=== PATIENT | female | born 1970 | race Caucasian/White ===

== ENCOUNTER 2016-07-31 19:40 | Emergency (ER) | payer BC ==
--- NOTE | 2016-07-31 20:04 | EDM.PDOC ---
ED HPI GENERAL MEDICAL PROBLEM - General Chief Complaint: Abdominal Pain Stated Complaint: PT HAS STOMACH PAINS Time Seen by Provider: 07/31/16 20:00 Source of Information: Reports: Patient History Limitations: Reports: No Limitations - History of Present Illness INITIAL COMMENTS - FREE TEXT/NARRATIVE: History of present illness: [45-year-old female presenting with abdominal pain. Indicates that it is going to her back and radiating outward. Patient has had a history of abdominal pains and numerous workups.] Review of systems: As per history of present illness and below otherwise all systems reviewed and negative. Past medical history: As per history of present illness and as reviewed below otherwise noncontributory. Surgical history: As per history of present illness and as reviewed below otherwise noncontributory. Social history: No reported history of drug or alcohol abuse. Family history: As per history of present illness and as reviewed below otherwise noncontributory. Physical exam: HEENT: Atraumatic, normocephalic, pupils reactive, negative for conjunctival pallor or scleral icterus, mucous membranes moist, throat clear, neck supple, nontender, trachea midline. Lungs: Clear to auscultation, breath sounds equal bilaterally, chest nontender. Heart: S1S2, regular, negative for clicks, rubs, or JVD. Abdomen: Soft, exquisite diffuse nonspecific tenderness Negative for masses or hepatosplenomegaly. Negative for costovertebral tenderness. Pelvis: Stable nontender. Genitourinary: Deferred. Rectal: Deferred. Extremities: Atraumatic, negative for cords or calf pain. Neurovascular unremarkable. Neuro: Awake, alert, oriented. Cranial nerves II through XII unremarkable. Cerebellum unremarkable. Motor and sensory unremarkable throughout. Exam nonfocal. Diagnostics: [CBC, CMP, amylase, lipase, troponin, UA, urine hCG] Therapeutics: [IV fluid, Toradol, Zofran, morphine] Impression: [Constipation] Plan: [Dulcolax suppository to take home and increase fiber] Definitive disposition and diagnosis as appropriate pending reevaluation and review of above. abdomen Pain Score (Numeric/FACES): 10 - Related Data Allergies Allergy/AdvReac Type Severity Reaction Status Date / Time acetaminophen [From Tylenol] Allergy Facial Verified 07/31/16 19:53 Spasms guaifenesin [From Mucinex] Allergy Swelling Verified 07/31/16 19:53 iodine Allergy Anaphylactic Verified 07/31/16 19:53 Shock Latex, Natural Rubber Allergy Anaphylactic Verified 07/31/16 19:53 Shock nickel [Nickel] Allergy Swelling Verified 07/31/16 19:53 Home Meds: Home Meds . 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: Reports: Other (See Below) Other OB/BYN History: 3 c-sections Neurological History: Reports: None Psychiatric History: Reports: None Hematologic History: Reports: None Oncologic (Cancer) History: Reports: Other (See Below) Other Oncologic History: (L) inguinal tumor removed - Past Surgical History GI Surgical History: Reports: Bariatric Procedure, Cholecystectomy Social & Family History - Family History Family Medical History: Noncontributory Other Cardiac Family History: cardiac disease in multiple siblings - Tobacco Use Smoking Status *Q: Current Some Day Smoker Years of Tobacco use: 20 Packs/Tins Daily: 0.1 Used Tobacco, but Quit: Yes Month Tobacco Last Used: August Second Hand Smoke Exposure: No - Alcohol Use Days Per Week of Alcohol Use: 0 - Recreational Drug Use Recreational Drug Use: No ED ROS GENERAL - Review of Systems Review Of Systems: See Below (See history of present illness) ED EXAM, GI/ABD - Physical Exam Exam: See Below (See history of present illness) Course - Vital Signs Last Recorded V/S: Last Vital Signs Temp 36.0 C 07/31/16 19:54 Pulse 64 07/31/16 19:54 Resp 18 07/31/16 19:54 BP 131/63 07/31/16 19:54 Pulse Ox 98 07/31/16 19:54 - Orders/Labs/Meds Orders: Active Orders 24 hr Category Date Time Status Abdomen Pelvis wo Cont [CT] Stat Exams 07/31/16 21:28 Taken Labs: Laboratory Tests 07/31/16 07/31/16 07/31/16 Range/Units 20:25 20:25 20:25 WBC 6.83 (4.0-11.0) K/uL RBC 4.66 (4.30-5.90) M/uL Hgb 14.3 (12.0-16.0) g/dL Hct 42.4 (36.0-46.0) % MCV 91.0 (80.0-98.0) fL MCH 30.7 (27.0-32.0) pg MCHC 33.7 (31.0-37.0) g/dL RDW Std Deviation 45.7 (28.0-62.0) fl RDW Coeff of Eloisa 14 (11.0-15.0) % Plt Count 212 (150-400) K/uL MPV 9.50 (7.40-12.00) fL Neut % (Auto) 39.7 L (48.0-80.0) % Lymph % (Auto) 50.4 H (16.0-40.0) % Nolan % (Auto) 6.7 (0.0-15.0) % Eos % (Auto) 2.5 (0.0-7.0) % Baso % (Auto) 0.7 (0.0-1.5) % Neut # (Auto) 2.7 (1.4-5.7) K/uL Lymph # (Auto) 3.4 H (0.6-2.4) K/uL Nolan # (Auto) 0.5 (0.0-0.8) K/uL Eos # (Auto) 0.2 (0.0-0.7) K/uL Baso # (Auto) 0.1 (0.0-0.1) K/uL Nucleated RBC % 0.0 /100WBC Nucleated RBCs # 0 K/uL Sodium 144 (136-146) mmol/L Potassium 4.1 (3.5-5.1) mmol/L Chloride 113 H (98-110) mmol/L Carbon Dioxide 20 L (21-31) mmol/L BUN 16 (6.0-23.0) mg/dL Creatinine 0.8 (0.6-1.5) mg/dL Est Cr Clr Drug Dosing 75.88 mL/min Estimated GFR (MDRD) > 60.0 ml/min Glucose 85 (60-110) mg/dL Calcium 8.4 L (8.8-10.8) mg/dL Total Bilirubin 0.4 (0.1-1.5) mg/dL AST 17 (5-40) IU/L ALT 20 (8-54) IU/L Alkaline Phosphatase 77 (40-150) Troponin I < 0.10 (0.0-0.29) NG/ML Total Protein 6.3 (6.0-8.0) g/dL Albumin 4.0 (3.5-5.0) g/dL Globulin 2.3 (2.0-3.5) g/dL Albumin/Globulin Ratio 1.7 (1.3-2.8) Amylase 53 (10-90) U/L Lipase 18 (7-80) U/L Urine Color Urine Appearance Urine pH (5.0-8.0) Ur Specific Bland (1.001-1.035) Urine Protein (NEGATIVE) mg/dL Urine Glucose (UA) (NEGATIVE) mg/dL Urine Ketones (NEGATIVE) mg/dL Urine Occult Blood (NEGATIVE) Urine Nitrite (NEGATIVE) Urine Bilirubin (NEGATIVE) Urine Urobilinogen (<2.0) EU/dL Ur Leukocyte Esterase (NEGATIVE) Urine RBC (0-2/HPF) Urine WBC (0-5/HPF) Ur Epithelial Cells (NONE-FEW) Urine Bacteria (NEGATIVE) Urine HCG, Qual (NEGATIVE) 07/31/16 07/31/16 Range/Units 21:35 21:35 WBC (4.0-11.0) K/uL RBC (4.30-5.90) M/uL Hgb (12.0-16.0) g/dL Hct (36.0-46.0) % MCV (80.0-98.0) fL MCH (27.0-32.0) pg MCHC (31.0-37.0) g/dL RDW Std Deviation (28.0-62.0) fl RDW Coeff of Eloisa (11.0-15.0) % Plt Count (150-400) K/uL MPV (7.40-12.00) fL Neut % (Auto) (48.0-80.0) % Lymph % (Auto) (16.0-40.0) % Nolan % (Auto) (0.0-15.0) % Eos % (Auto) (0.0-7.0) % Baso % (Auto) (0.0-1.5) % Neut # (Auto) (1.4-5.7) K/uL Lymph # (Auto) (0.6-2.4) K/uL Nolan # (Auto) (0.0-0.8) K/uL Eos # (Auto) (0.0-0.7) K/uL Baso # (Auto) (0.0-0.1) K/uL Nucleated RBC % /100WBC Nucleated RBCs # K/uL Sodium (136-146) mmol/L Potassium (3.5-5.1) mmol/L Chloride (98-110) mmol/L Carbon Dioxide (21-31) mmol/L BUN (6.0-23.0) mg/dL Creatinine (0.6-1.5) mg/dL Est Cr Clr Drug Dosing mL/min Estimated GFR (MDRD) ml/min Glucose (60-110) mg/dL Calcium (8.8-10.8) mg/dL Total Bilirubin (0.1-1.5) mg/dL AST (5-40) IU/L ALT (8-54) IU/L Alkaline Phosphatase (40-150) Troponin I (0.0-0.29) NG/ML Total Protein (6.0-8.0) g/dL Albumin (3.5-5.0) g/dL Globulin (2.0-3.5) g/dL Albumin/Globulin Ratio (1.3-2.8) Amylase (10-90) U/L Lipase (7-80) U/L Urine Color YELLOW Urine Appearance CLEAR Urine pH 5.5 (5.0-8.0) Ur Specific Bland 1.020 (1.001-1.035) Urine Protein NEGATIVE (NEGATIVE) mg/dL Urine Glucose (UA) NEGATIVE (NEGATIVE) mg/dL Urine Ketones 15 H (NEGATIVE) mg/dL Urine Occult Blood NEGATIVE (NEGATIVE) Urine Nitrite NEGATIVE (NEGATIVE) Urine Bilirubin NEGATIVE (NEGATIVE) Urine Urobilinogen 0.2 (<2.0) EU/dL Ur Leukocyte Esterase NEGATIVE (NEGATIVE) Urine RBC 0-1 (0-2/HPF) Urine WBC 0-2 (0-5/HPF) Ur Epithelial Cells FEW (NONE-FEW) Urine Bacteria FEW (NEGATIVE) Urine HCG, Qual NEGATIVE (NEGATIVE) Meds: Medications Discontinued Medications Generic Name Dose Route Start Last Admin Trade Name Freq PRN Reason Stop Dose Admin Al Hydroxide/Mg Hydroxide 15 0 ml 07/31/16 20:25 07/31/16 20:47 ml/ Metoclopramide HCl 5 mg/ PO 07/31/16 20:26 25 each Lidocaine HCl 5 ml ONETIME ONE Administration Hydromorphone HCl 1 mg 07/31/16 21:21 07/31/16 21:41 Dilaudid IVPUSH 07/31/16 21:22 1 mg ONETIME ONE Administration Hydromorphone HCl 2 mg 07/31/16 22:02 07/31/16 22:49 Dilaudid IVPUSH 07/31/16 22:03 2 mg ONETIME ONE Administration Sodium Chloride 1,000 mls @ 999 mls/hr 07/31/16 20:24 07/31/16 20:36 Normal Saline IV 07/31/16 21:24 999 mls/hr STAT ONE Administration Sodium Chloride 1,000 mls @ 999 mls/hr 07/31/16 21:22 07/31/16 21:52 Normal Saline IV 07/31/16 22:22 999 mls/hr STAT ONE Administration Pantoprazole Sodium 80 mg/ 10 mls @ 300 mls/hr 07/31/16 21:22 07/31/16 21:44 Sodium Chloride IVPUSH 07/31/16 21:23 300 mls/hr NOW ONE Administration Ketorolac Tromethamine 30 mg 07/31/16 20:24 07/31/16 20:44 Toradol IVPUSH 07/31/16 20:25 30 mg ONETIME ONE Administration Morphine Sulfate 2 mg 07/31/16 20:24 07/31/16 20:37 Morphine IVPUSH 07/31/16 20:25 2 mg ONETIME ONE Administration Ondansetron HCl 4 mg 07/31/16 20:24 07/31/16 20:40 Zofran IVPUSH 07/31/16 20:25 4 mg ONETIME ONE Administration Ondansetron HCl 4 mg 07/31/16 21:21 07/31/16 21:39 Zofran IVPUSH 07/31/16 21:22 4 mg ONETIME ONE Administration Departure - Departure Time of Disposition: 23:48 Disposition: Home, Self-Care 01 Condition: Good Clinical Impression: Constipation - Discharge Information Instructions: Abdominal Pain, Adult, [id number] Forms: ED Department Discharge Additional Instructions: The following information is given to patients seen in the emergency department who are being discharged to home. This information is to outline your options for follow-up care. We provide all patients seen in our emergency department with a follow-up referral. The need for follow-up, as well as the timing and circumstances, are variable depending upon the specifics of your emergency department visit. If you don't have a primary care physician on staff, we will provide you with a referral. We always advise you to contact your personal physician following an emergency department visit to inform them of the circumstance of the visit and for follow-up with them and/or the need for any referrals to a consulting specialist. The emergency department will also refer you to a specialist when appropriate. This referral assures that you have the opportunity for follow-up care with a specialist. All of these measure are taken in an effort to provide you with optimal care, which includes your follow-up. Under all circumstances we always encourage you to contact your private physician who remains a resource for coordinating your care. When calling for follow-up care, please make the office aware that this follow-up is from your recent emergency room visit. If for any reason you are refused follow-up, please contact the [facility] Emergency Department at and asked to speak to the emergency department charge nurse. As discussed you have a significant amount of fecal content in your colon It is important to increase her fiber and your hydration secondary to gastric bypass which predisposes you to this problem Follow up with her primary care provider 1-2 days Return to ED as needed as discussed - My Orders Last 24 Hours: My Active Orders 07/31/16 21:28 Abdomen Pelvis wo Cont [CT] Stat - Assessment/Plan Last 24 Hours: My Active Orders 07/31/16 21:28 Abdomen Pelvis wo Cont [CT] Stat
[2016-07-31] MEDS ORDERED: Morphine 2 MG/ML Syringe IVPUSH ONE (20:24)
[2016-07-31] MEDS ORDERED: Ondansetron 4 MG/2 ML SDV IVPUSH ONE ×2 (20:24→21:21)
[2016-07-31] MEDS ORDERED: Ketorolac 30 MG/ML SDV IVPUSH ONE (20:24)
[2016-07-31] MEDS ORDERED: Sodium Chloride 0.9% 1,000 ML IV ONE ×2 (20:24→21:22)
[2016-07-31] MEDS ORDERED: Alum Hydrox/Mag Hydrox/Simeth 15 ML, Metoclopramide 5 MG, Lidocaine 2% 5 ML PO ONE ×3 (20:25)
[2016-07-31 21:07] LABS: CHLORIDE,CL 113 mmol/L (98-110); SODIUM,NA 144 mmol/L (136-146)
[2016-07-31] MEDS ORDERED: HYDROmorphone 2 MG/ML Syringe IVPUSH ONE ×2 (21:21→22:02)
[2016-07-31] MEDS ORDERED: Pantoprazole 80 MG in Sodium Chloride 0.9% 10 ML IVPUSH ONE (21:22)
[2016-07-31] MEDS ORDERED: Bisacodyl 10 MG Supp RECTAL ONE (23:49)
[2016-08-01 00:04] VITALS: BP 121/60
--- NOTE | 2016-08-01 10:10 | CT ---
EXAM DATE: 07/31/16 PATIENT'S AGE: 45 Patient: RAJWINDER BAILEY Facility: [place], [place] Site . Site : 1970 Study: CT Abdomen/Pelvis [id number]/[id number] 10:22:45 PM Ordering Physician: Doctor Maier Final Report: INDICATION: Pain. TECHNIQUE: CT abdomen and pelvis acquired with IV contrast. COMPARISON: CT abdomen pelvis 09/06/2015. FINDINGS: Lower chest: Lung bases are clear. Liver: Unremarkable. Spleen: Unremarkable. Pancreas: Unremarkable. Gallbladder and bile ducts: Cholecystectomy. Kidneys: No evidence of urolithiasis or hydroureteronephrosis. Adrenal glands: Unremarkable. GI tract: Changes of gastric bypass again noted. There is gaseous distention of the ascending and transverse colon. Mild fecal loading of the proximal colon as well. Fecal loading of the sigmoid colon and rectum. No evidence of mechanical obstruction. The appendix is normal in appearance. No free air or free fluid. Vascular structures: Unremarkable. Lymph nodes: Unremarkable. Pelvic Organs: Unremarkable. Bones: No acute abnormality. IMPRESSION: Gaseous distention of the proximal colon. Fecal loading of the sigmoid colon and rectum. No evidence of mechanical obstruction. Dictated by Delfino Mckinney MD @ 07/31/2016 10:56:13 PM Dictated by: Delfino Mckinney MD @ 07/31/2016 22:56:36 ----- ADDENDUM ----- IMPRESSION: Technique should read: CT abdomen and pelvis without contrast. . Remainder of the report is unchanged. Dictated by Delfino Mckinney MD @ Jul 31 2016 11:24PM (Electronic Signature) Report Signed by Proxy. [facility] MED[facility] CENTERDavid
== END 2016-07-31 23:59 | disposition home or self-care (01) ==
LOC: MW.ED 19:40
DX: K59.00 Constipation, unspecified (principal); J45.909 Unspecified asthma, uncomplicated; F17.210 Nicotine dependence, cigarettes, uncomplicated; Z87.01 Personal history of pneumonia (recurrent); Z98.84 Bariatric surgery status; Z90.49 Acquired absence of other specified parts of digestive tract; Z98.890 Other specified postprocedural states; Z88.6 Allergy status to analgesic agent; Z88.8 Allergy status to other drugs, medicaments and biological substances; Z91.040 Latex allergy status
CPT/HCPCS: 36415; 74176; 80053; 81001; 81025; 82150; 83690; 84484; 85025; 96361; 96374; 96375; 96376; 99284; A9270; C9113; J1170; J1885; J2270; J2405; J7040

== ENCOUNTER 2017-04-24 19:59 | Emergency (ER) | payer BC ==
--- NOTE | 2017-04-24 20:12 | EDM.PDOC ---
ED HPI GENERAL MEDICAL PROBLEM - General Stated Complaint: LOW BLOOD SUGAR Time Seen by Provider: 04/24/17 20:00 Source of Information: Reports: Patient, Family History Limitations: Reports: No Limitations - History of Present Illness INITIAL COMMENTS - FREE TEXT/NARRATIVE: HISTORY AND PHYSICAL: History of present illness: Patient is a 46-year-old female who presents to the emergency room today with complaints of low blood sugars. She states that for "as long as I can remember" she has had hypoglycemia. States over the past several years is becoming more and more frequent. She has mentioned this several times to Dr. Colon, her primary caregiver, and has had no formal "workup". Kyleigh Johnson has recently referred her to an shingle catcher, appointment date/time is in progress. Patient is here today with her who states that they use over the counter glucagon tablets when her blood sugar gets low. She is having these episodes 1-2 per week where her blood sugar will get in the 30's. The patient states she is concerned as her symptoms do not present until she is in the 30's to 40's. As a glucose monitor at home which she uses during these times. State she becomes "goofy" and diaphoretic when her sugars are low. "I usually bounce back pretty quickly" after taking the OTC glucagon. Patient has a history of a gastric bypass and reports that she eats 3 meals with 3X throughout the day, "I'm getting plenty of sugars through my food". Patient and appear frustrated as they state they are unsure "when low blood sugar is too low". Review of systems: As per history of present illness and below otherwise all systems reviewed and negative. Past medical history: As per history of present illness and as reviewed below otherwise noncontributory. Surgical history: As per history of present illness and as reviewed below otherwise noncontributory. Social history: No reported history of drug or alcohol abuse. Family history: As per history of present illness and as reviewed below otherwise noncontributory. Physical exam: General: Well-developed and well-nourished 46-year-old female. Alert and oriented. Nontoxic appearing and in no acute distress. HEENT: Atraumatic, normocephalic, pupils reactive, negative for conjunctival pallor or scleral icterus, mucous membranes moist, throat clear, neck supple, nontender, trachea midline. Lungs: Clear to auscultation, breath sounds equal bilaterally, chest nontender. Heart: S1S2, regular, negative for clicks, rubs, or JVD. Abdomen: Soft, nondistended, nontender. Negative for masses or hepatosplenomegaly. Negative for costovertebral tenderness. Pelvis: Stable nontender. Genitourinary: Deferred. Rectal: Deferred. Extremities: Atraumatic, negative for cords or calf pain. Neurovascular unremarkable. Neuro: Awake, alert, oriented. Cranial nerves II through XII unremarkable. Cerebellum unremarkable. Motor and sensory unremarkable throughout. Exam nonfocal. Current blood sugar is 75. [place] juice and PB crackers were given to patient. Will continue to monitor glucose with accu-check. Discussed with the patient the limited abilities throughout emergency room for the workup and the shingle catcher will be doing. Will do a CBC, CMP and urinalysis at this time. Lab work is within normal limits. These results with the patient. Encouraged her to keep her appointment with primary care and make sure she gets that appointment with the shingle catcher. Discussed hard of care measures to have available in case her blood sugar drops again. She voices understanding and is agreeable to plan of care. She denies any questions at this time. Diagnostics: CBC, CMP, [employer]: [place] juice, Accu-checks Impression: Hypoglycemia Plan: 1. Please make sure you are eating frequent small meals throughout the day. Have your glucose tabs and/or sugary candies available in the case of a hypoglycemic event. Within 30 minutes, you should have some food (peanut butter/ crackers, banana, etc..) that has slower digesting sugars. 2. Make sure to follow up with your primary care provider, and that you follow up with the [employer]. Return to the ED as needed as discussed. Definitive disposition and diagnosis as appropriate pending reevaluation and review of above. Duration: Chronic - Related Data Allergies Allergy/AdvReac Type Severity Reaction Status Date / Time acetaminophen [From Tylenol] Allergy Facial Verified 04/24/17 20:16 Spasms guaifenesin [From Mucinex] Allergy Swelling Verified 04/24/17 20:16 iodine Allergy Anaphylactic Verified 04/24/17 20:16 Shock Latex, Natural Rubber Allergy Anaphylactic Verified 04/24/17 20:16 Shock nickel [Nickel] Allergy Swelling Verified 04/24/17 20:16 Home Meds: Home Meds . [No Known Home Meds] 07/31/16 [History] Past Medical History - Past Health History Medical/Surgical History: Denies Medical/Surgical History HEENT History: Reports: None Cardiovascular History: Reports: None Respiratory History: Reports: Asthma, Bronchitis, Recurrent, Pneumonia, Recurrent Gastrointestinal History: Reports: Other (See Below) Other Gastrointestinal History: gastric bypass Genitourinary History: Reports: None IMPROVEMENT SPEC History: Reports: Other (See Below) Other OB/BYN History: 3 c-sections Musculoskeletal History: Reports: None Neurological History: Reports: None Psychiatric History: Reports: None Endocrine/Metabolic History: Reports: None Hematologic History: Reports: None Immunologic History: Reports: None Oncologic (Cancer) History: Reports: Other (See Below) Other Oncologic History: (L) inguinal tumor removed Dermatologic History: Reports: None - Infectious Disease History Infectious Disease History: Reports: Mumps - Past Surgical History GI Surgical History: Reports: Bariatric Procedure, Cholecystectomy Social & Family History - Family History Family Medical History: Noncontributory Other Cardiac Family History: cardiac disease in multiple siblings - Tobacco Use Smoking Status *Q: Current Some Day Smoker Years of Tobacco use: 20 Packs/Tins Daily: 0.1 Used Tobacco, but Quit: Yes Month Tobacco Last Used: August Second Hand Smoke Exposure: No - Caffeine Use Caffeine Use: Reports: Coffee - Alcohol Use Days Per Week of Alcohol Use: 0 - Recreational Drug Use Recreational Drug Use: No ED ROS GENERAL - Review of Systems Review Of Systems: ROS reveals no pertinent complaints other than HPI. ED EXAM, GENERAL - Physical Exam Exam: See Below (See dictation) Course - Vital Signs Last Recorded V/S: Last Vital Signs Temp 98.7 F 04/24/17 20:13 Pulse 71 04/24/17 20:13 Resp 12 04/24/17 20:13 BP 128/57 L 04/24/17 20:13 Pulse Ox 99 04/24/17 20:13 - Orders/Labs/Meds Orders: Active Orders 24 hr Category Date Time Status Accu Check [Blood Glucose Check, Bedside] [RC] ONETIME Care 04/24/17 21:17 Active Blood Glucose Check, Bedside [RC] ONETIME Care 04/24/17 20:39 Active Communication Order [RC] STAT Care 04/24/17 20:39 Active CULTURE URINE [RM] Stat Lab 04/24/17 21:29 Ordered Labs: Laboratory Tests 04/24/17 04/24/17 04/24/17 Range/Units 20:30 20:51 20:51 WBC 9.06 (4.0-11.0) K/uL RBC 4.49 (4.30-5.90) M/uL Hgb 13.9 (12.0-16.0) g/dL Hct 41.0 (36.0-46.0) % MCV 91.3 (80.0-98.0) fL MCH 31.0 (27.0-32.0) pg MCHC 33.9 (31.0-37.0) g/dL RDW Std Deviation 46.2 (28.0-62.0) fl RDW Coeff of [place] 14 (11.0-15.0) % Plt Count 188 (150-400) K/uL MPV 9.30 (7.40-12.00) fL Neut % (Auto) 45.8 L (48.0-80.0) % Lymph % (Auto) 41.7 H (16.0-40.0) % [place] % (Auto) 8.7 (0.0-15.0) % Eos % (Auto) 3.2 (0.0-7.0) % Baso % (Auto) 0.6 (0.0-1.5) % Neut # (Auto) 4.2 (1.4-5.7) K/uL Lymph # (Auto) 3.8 H (0.6-2.4) K/uL [place] # (Auto) 0.8 (0.0-0.8) K/uL Eos # (Auto) 0.3 (0.0-0.7) K/uL Baso # (Auto) 0.1 (0.0-0.1) K/uL Nucleated RBC % 0.0 /100WBC Nucleated RBCs # 0 K/uL Sodium 144 (136-145) mmol/L Potassium 4.4 (3.5-5.1) mmol/L Chloride 110 H (98-107) mmol/L Carbon Dioxide 27.5 (21.0-32.0) mmol/L BUN 22 H (7.0-18.0) mg/dL Creatinine 1.0 (0.6-1.0) mg/dL Est Cr Clr Drug Dosing 60.06 mL/min Estimated GFR (MDRD) 59.4 ml/min Glucose 81 (74-106) mg/dL Calcium 8.3 L (8.5-10.1) mg/dL Total Bilirubin 0.2 (0.2-1.0) mg/dL AST 16 (15-37) IU/L ALT 24 (14-63) IU/L Alkaline Phosphatase 95 (46-116) U/L Total Protein 6.1 L (6.4-8.2) g/dL Albumin 3.4 (3.4-5.0) g/dL Globulin 2.7 (2.0-3.5) g/dL Albumin/Globulin Ratio 1.3 (1.3-2.8) Urine Color YELLOW Urine Appearance CLEAR Urine pH 5.5 (5.0-8.0) Ur Specific [place] >= 1.030 (1.001-1.035) Urine Protein NEGATIVE (NEGATIVE) mg/dL Urine Glucose (UA) NEGATIVE (NEGATIVE) mg/dL Urine Ketones TRACE H (NEGATIVE) mg/dL Urine Occult Blood NEGATIVE (NEGATIVE) Urine Nitrite NEGATIVE (NEGATIVE) Urine Bilirubin NEGATIVE (NEGATIVE) Urine Urobilinogen 0.2 (<2.0) EU/dL Ur Leukocyte Esterase TRACE (NEGATIVE) Urine RBC 0-1 (0-2/HPF) Urine WBC 0-3 (0-5/HPF) Ur Epithelial Cells FEW (NONE-FEW) Urine Bacteria FEW (NEGATIVE) Departure - Departure Time of Disposition: 21:25 Disposition: Home, Self-Care 01 Clinical Impression: Hypoglycemia - Discharge Information Instructions: Hypoglycemia, [id number] Referrals: Zbigniew Colon MD [Primary Care Provider] - Forms: ED Department Discharge Additional Instructions: The following information is given to patients seen in the emergency department who are being discharged to home. This information is to outline your options for follow-up care. We provide all patients seen in our emergency department with a follow-up referral. The need for follow-up, as well as the timing and circumstances, are variable depending upon the specifics of your emergency department visit. If you don't have a primary care physician on staff, we will provide you with a referral. We always advise you to contact your personal physician following an emergency department visit to inform them of the circumstance of the visit and for follow-up with them and/or the need for any referrals to a consulting specialist. The emergency department will also refer you to a specialist when appropriate. This referral assures that you have the opportunity for follow-up care with a specialist. All of these measure are taken in an effort to provide you with optimal care, which includes your follow-up. Under all circumstances we always encourage you to contact your private physician who remains a resource for coordinating your care. When calling for follow-up care, please make the office aware that this follow-up is from your recent emergency room visit. If for any reason you are refused follow-up, please contact the [facility] Emergency Department at and asked to speak to the emergency department charge nurse. [address] [address] 1. Please continue to eating frequent small meals throughout the day to prevent your blood sugars from dropping. Have your glucose tabs and/or sugary candies available in the case of a hypoglycemic event. Within 30 minutes, you should have some food (peanut butter/crackers, banana, etc..) that has slower digesting sugars. 2. Make sure to follow up with your primary care provider, and that you follow up with the [employer]. Return to the ED as needed as discussed. - My Orders Last 24 Hours: My Active Orders 04/24/17 20:39 Blood Glucose Check, Bedside [RC] ONETIME Communication Order [RC] STAT 04/24/17 21:17 Accu Check [Blood Glucose Check, Bedside] [RC] ONETIME 04/24/17 21:29 CULTURE URINE [RM] Stat - Assessment/Plan Last 24 Hours: My Active Orders 04/24/17 20:39 Blood Glucose Check, Bedside [RC] ONETIME Communication Order [RC] STAT 04/24/17 21:17 Accu Check [Blood Glucose Check, Bedside] [RC] ONETIME 04/24/17 21:29 CULTURE URINE [RM] Stat
[2017-04-24 21:47] VITALS: BP 126/50
== END 2017-04-24 21:40 | disposition home or self-care (01) ==
LOC: MW.ED 19:59
DX: E16.2 Hypoglycemia, unspecified (principal); F17.210 Nicotine dependence, cigarettes, uncomplicated; Z91.040 Latex allergy status; Z88.8 Allergy status to other drugs, medicaments and biological substances; Z88.6 Allergy status to analgesic agent
CPT/HCPCS: 36415; 80053; 81001; 82962; 85025; 87086; 99283; 99284

== ENCOUNTER 2018-02-27 07:52 | Emergency (ER) | payer BC ==
[2018-02-27] MEDS ORDERED: predniSONE 20 MG Tab PO ONE (08:04)
[2018-02-27] MEDS ORDERED: diphenhydrAMINE 25 MG Cap PO ONE (08:04)
--- NOTE | 2018-02-27 08:21 | EDM.PDOC ---
ED HPI GENERAL MEDICAL PROBLEM - General Chief Complaint: Allergic Reaction Stated Complaint: ALLERGIC REACTION Time Seen by Provider: 02/27/18 08:01 Source of Information: Reports: Patient History Limitations: Reports: No Limitations - History of Present Illness INITIAL COMMENTS - FREE TEXT/NARRATIVE: History of present illness: []Patient started a new B12 supplement last night developed a rash with burning and itching in her face and arms approximately 30 minutes to arrival. As any difficulty breathing, swallowing or shortness of breath. Review of systems: As per history of present illness and below otherwise all systems reviewed and negative. Past medical history: As per history of present illness and as reviewed below otherwise noncontributory. Surgical history: As per history of present illness and as reviewed below otherwise noncontributory. Social history: No reported history of drug or alcohol abuse. Family history: As per history of present illness and as reviewed below otherwise noncontributory. Physical exam: General: Well developed, well nourished in NAD HEENT: Atraumatic, normocephalic, pupils reactive, negative for conjunctival pallor or scleral icterus, mucous membranes moist, throat clear, no edema in the posterior pharynx neck supple, nontender, trachea midline. No stridor Lungs: Clear to auscultation, breath sounds equal bilaterally, chest nontender. Heart: S1S2, regular, negative for clicks, rubs, or JVD. Abdomen: NABS, Soft, nondistended, nontender. Negative for masses or hepatosplenomegaly. Negative for costovertebral tenderness. Pelvis: Stable nontender. Genitourinary: Deferred. Rectal: Deferred. Extremities: Atraumatic, negative for cords or calf pain. Neurovascular unremarkable. Neuro: Awake, alert, oriented. Cranial nerves II through XII unremarkable. Cerebellum unremarkable. Motor and sensory unremarkable throughout. Exam nonfocal. Skin:warm and dry, generalized erythematous skin on face and arms no lesions. Diagnostics: None Therapeutics: Benadryl and prednisone ED Course: Unremarkable Impression: Allergic reaction Prescriptions: Prednisone 5 day burst Plan: Benadryl, prednisone, follow up with primary care return symptoms worsen or change. Definitive disposition and diagnosis as appropriate pending reevaluation and review of above. bilateral hands Pain Score (Numeric/FACES): 2 - Related Data Allergies Allergy/AdvReac Type Severity Reaction Status Date / Time acetaminophen [From Tylenol] Allergy Facial Verified 02/27/18 08:00 Spasms guaifenesin [From Mucinex] Allergy Swelling Verified 02/27/18 08:00 iodine Allergy Anaphylactic Verified 02/27/18 08:00 Shock Latex, Natural Rubber Allergy Anaphylactic Verified 02/27/18 08:00 Shock nickel [Nickel] Allergy Swelling Verified 02/27/18 08:00 brazil nuts Allergy Itching Uncoded 02/27/18 08:00 Home Meds: Home Meds Furosemide 20 mg PO ASDIRECTED 02/27/18 [History] Metoprolol Succinate [[place] Sprinkle] 25 mg PO DAILY 02/27/18 [History] Topiramate [Topamax] 15 mg PO DAILY 02/27/18 [History] predniSONE [Prednisone] 20 mg PO DAILY #5 tablet 02/27/18 [Rx] Past Medical History - Past Health History Medical/Surgical History: Denies Medical/Surgical History HEENT History: Reports: None Cardiovascular History: Reports: Other (See Below) Other Cardiovascular History: Hypotension, tacyhcardia Respiratory History: Reports: Bronchitis, Recurrent, Pneumonia, Recurrent Gastrointestinal History: Reports: Other (See Below) Other Gastrointestinal History: gastric bypass Genitourinary History: Reports: None [employer]CKLE MAKER History: Reports: Other (See Below) Other BELT BUCKLE MAKER History: 2 c-sections Musculoskeletal History: Reports: None Neurological History: Reports: None Psychiatric History: Reports: None Endocrine/Metabolic History: Reports: None Hematologic History: Reports: None Immunologic History: Reports: None Oncologic (Cancer) History: Reports: Other (See Below) Other Oncologic History: (L) inguinal tumor removed Dermatologic History: Reports: None - Infectious Disease History Infectious Disease History: Reports: None - Past Surgical History Head Surgeries/Procedures: Reports: None HEENT Surgical History: Reports: None Cardiovascular Surgical History: Reports: None Respiratory Surgical History: Reports: None GI Surgical History: Reports: Bariatric Procedure, Cholecystectomy Female Surgical History: Reports: Hysterectomy Endocrine Surgical History: Reports: None Neurological Surgical History: Reports: None Musculoskeletal Surgical History: Reports: None Oncologic Surgical History: Reports: None Dermatological Surgical History: Reports: None Social & Family History - Family History Family Medical History: Noncontributory Other Cardiac Family History: cardiac disease in multiple siblings - Tobacco Use Smoking Status *Q: Current Every Day Smoker Years of Tobacco use: 30 Packs/Tins Daily: 0.3 - Caffeine Use Caffeine Use: Reports: Coffee - Recreational Drug Use Recreational Drug Use: No ED ROS ALLERGIC REACTION - Review of Systems Review Of Systems: ROS reveals no pertinent complaints other than HPI. ED EXAM GENERAL NO PERIP PULSE - Physical Exam Exam: See Below (See history of present illness) Course - Vital Signs Last Recorded V/S: Last Vital Signs Temp 96.0 F 02/27/18 07:57 Pulse 76 02/27/18 07:57 Resp 18 02/27/18 07:57 BP 111/71 02/27/18 07:57 Pulse Ox 97 02/27/18 07:57 - Orders/Labs/Meds Meds: Medications Discontinued Medications Generic Name Dose Route Start Last Admin Trade Name Eliezer PRN Reason Stop Dose Admin Diphenhydramine HCl 25 mg 02/27/18 08:04 02/27/18 08:10 Benadryl PO 02/27/18 08:05 25 mg ONETIME ONE Administration Prednisone 60 mg 02/27/18 08:04 02/27/18 08:11 Prednisone PO 02/27/18 08:05 60 mg ONETIME ONE Administration Departure - Departure Time of Disposition: 08:35 Disposition: Home, Self-Care 01 Condition: Good Clinical Impression: Allergic reaction caused by a drug Qualifiers: Encounter type: initial encounter Qualified Code(s): T78.40XA - Allergy, unspecified, initial encounter - Discharge Information *PRESCRIPTION DRUG MONITORING PROGRAM REVIEWED*: No *COPY OF PRESCRIPTION DRUG MONITORING REPORT IN PATIENT [place]: No Prescriptions: predniSONE [Prednisone] 20 mg PO DAILY #5 tablet Referrals: Maranda Salazar PRESS HAND SUPERVISOR [Primary Care Provider] - Additional Instructions: The following information is given to patients seen in the emergency department who are being discharged to home. This information is to outline your options for follow-up care. We provide all patients seen in our emergency department with a follow-up referral. The need for follow-up, as well as the timing and circumstances, are variable depending upon the specifics of your emergency department visit. If you don't have a primary care physician on staff, we will provide you with a referral. We always advise you to contact your personal physician following an emergency department visit to inform them of the circumstance of the visit and for follow-up with them and/or the need for any referrals to a consulting specialist. The emergency department will also refer you to a specialist when appropriate. This referral assures that you have the opportunity for follow-up care with a specialist. All of these measure are taken in an effort to provide you with optimal care, which includes your follow-up. Under all circumstances we always encourage you to contact your private physician who remains a resource for coordinating your care. When calling for follow-up care, please make the office aware that this follow-up is from your recent emergency room visit. If for any reason you are refused follow-up, please contact the [facility] Emergency Department at and asked to speak to the emergency department charge nurse. Take meds as directed and return to ER if symptoms worsen or change. [facility] [address] [place] [id number]
[2018-02-27 09:06] VITALS: BP 104/57
== END 2018-02-27 08:44 | disposition home or self-care (01) ==
LOC: MW.ED 07:52
DX: L27.1 Localized skin eruption due to drugs and medicaments taken internally (principal); T45.2X5A Adverse effect of vitamins, initial encounter; F17.210 Nicotine dependence, cigarettes, uncomplicated; Z88.6 Allergy status to analgesic agent; Z88.8 Allergy status to other drugs, medicaments and biological substances; Z91.09 Other allergy status, other than to drugs and biological substances; Z91.018 Allergy to other foods; Z79.899 Other long term (current) drug therapy
CPT/HCPCS: 99283; A9270